=== PATIENT | male | born 1995 | race Caucasian/White ===

== ENCOUNTER 2017-07-07 15:52 | Emergency (ER) | payer OTHER ==
[2017-07-07 16:03] VITALS: BP 143/73; PULSE 66; RESP 16; TEMP 98.1; O2SAT 98
[2017-07-07] MEDS ORDERED: PROPARACAINE 0.5% 15 ML OPHT DROP ONE (16:07)
[2017-07-07] MEDS ORDERED: FLUORESCEIN SODIUM 1 MG STRIP OP ONE (16:07)
--- NOTE | 2017-07-07 16:28 | EDPHY ---
H & P Time Seen by Provider: 07/07/17 16:15 HPI/ROS: CHIEF COMPLAINT: Foreign body right eye HISTORY OF PRESENT ILLNESS: 22-year-old male presents to the emergency department with concerns about foreign body to his right eye. Patient was working on an electronic project and immediately felt foreign body in his right eye. He tried to flush his eye multiple times. He has pain especially with blinking. He has foreign body sensation. No symptoms in the left eye. Tetanus shot is current. ROS: Denies double vision, blurry vision. Denies symptoms in the left eye. Past Medical/Surgical History: Negative Social History: [employer] student Smoking Status: Never smoked Physical Exam: Visual Acuity: noted from Nurse's notes. Pupils:equal round and reactive to light EOMI Lids: no edema or swelling upper eyelid was everted and small metallic foreign body was removed with cotton swab. Skin: no proptosis, no periorbital erythema or swelling, no vesicles Conjunctivae: Injection noted to the right eye. No discharge. Cornea: Proparacaine instilled into the right eye, fluorescein as well. Under slit-lamp examination patient diffuse uptake of dye to the central aspect of the cornea consistent with superficial corneal abrasion. No other retained foreign bodies noted. Anterior chamber:normal, no hyphema or hypopyon Constitutional: Initial Vital Signs Temperature (C) 36.7 C 07/07/17 16:01 Heart Rate 66 07/07/17 16:01 Respiratory Rate 16 07/07/17 16:01 Blood Pressure 143/73 H 07/07/17 16:01 O2 Sat (%) 98 07/07/17 16:01 O2 Delivery Mode Room Air Allergies/Adverse Reactions: No Known Allergies Allergy (Unverified 07/07/17 16:00) Home Medications: Medication Instructions Recorded Ofloxacin 0.3% [Ocuflox] 1 - 2 drops RTEYE QID 5 Days btl 07/07/17 MDM/Departure - [facility] ED Course/Re-evaluation: 22-year-old male presents to the emergency department with foreign body in his right eye. Foreign body was easily removed with cotton swab. Corneal abrasion noted on exam. He will be treated with Ocuflox drops for prophylaxis. He was given ophthalmology referral. His tetanus shot is current. - Depart Disposition: Home, Routine, Self-Care Clinical Impression: Corneal abrasion right eye Foreign body of right eye Qualifiers: Encounter type: initial encounter Qualified Code(s): T15.91XA - Foreign body on external eye, part unspecified, right eye, initial encounter Condition: Good Instructions: Corneal Abrasion (ED), Eye Foreign Body (ED) Additional Instructions: Ocuflox drops 2 drops four times daily for 5 days to the right eye to prevent infection. Return to the emergency department if you develop visual changes or if you feel worse in any way. Prescriptions: Ofloxacin 0.3% [Ocuflox] 1 - 2 drops RTEYE QID 5 Days btl Referrals: Brii Guzman MD [Non Staff Provider (MD)] - 2-3 days, if not improved ( Behavioral Interventionist on-call)
== END 2017-07-07 16:35 | disposition home or self-care (01) ==
LOC: EDBD 15:52
PROC: 08C0XZZ Extirpation of Matter from Right Eye, External Approach (ICD-10-PCS; principal; 2017-07-07)
DX: T15.91XA Foreign body on external eye, part unspecified, right eye, initial encounter (principal); X58.XXXA Exposure to other specified factors, initial encounter